=== PATIENT | male | born 1990 | race African-American/Black ===

== ENCOUNTER 2023-05-18 10:08 | Emergency (ER) | payer SELFPAY ==
[~2023-05-18] VITALS: Ht 185.4 cm; Wt 105.0 kg
[2023-05-18 10:13] VITALS: O2SAT 96
[2023-05-18 11:34] LABS: BASOPHILS % 0.1 % (0.0-2.0); HEMATOCRIT. 46.1 % (42.0-52.0); HEMOGLOBIN. 15.4 g/dL (14.0-18.0); LYMPHOCYTES % 11.3 % (20.0-50.0); MEAN CORPUSCULAR HEMOGLOBIN 28.8 pg (28.0-32.0); MEAN CORPUSCULAR HGB CONC 33.4 g/dL (31.0-37.0); MEAN CORPUSCULAR VOLUME 86.3 fL (80.0-94.0); MEAN PLATELET VOLUME 9.6 fl (7.4-10.4); NEUTROPHILS % 79.6 % (40.0-76.0); PLATELET 289 x1000/uL (130-400); RED BLOOD CELL COUNT 5.35 mill/uL (4.7-6.1); RED CELL DISTRIBUTION WIDTH 13.4 % (11.6-14.6); WHITE BLOOD COUNT 9.3 x1000/uL (4.5-11.0)
[2023-05-18 11:42] LABS: INR 1.1
[2023-05-18] MEDS: MORPHINE SULFATE 2 MG/ML CPJ (NOT FOR IM USE) IV NR (11:45)
[2023-05-18] MEDS: ONDANSETRON HCL 4MG/2ML INJ IV PRN (11:45)
[2023-05-18 11:48] LABS: ALANINE AMINOTRANSFERASE 17 IU/L (10-49); ALBUMIN 5.7 g/dL (3.2-4.8); ASPARTATE AMINOTRANSFERASE 19 IU/L (<34); BILIRUBIN TOTAL 0.5 mg/dL (0.1-1.0); CALCIUM 10.6 mg/dL (8.7-10.4); CARBON DIOXIDE 24 mEq/L (21-32); CHLORIDE 104 mEq/L (98-107); CREATININE 1.2 mg/dL (0.6-1.3); GLUCOSE 141 mg/dL (70-105); POTASSIUM 3.4 mEq/L (3.5-5.1); PROTEIN TOTAL 9.5 g/dL (6.0-8.3); SODIUM 142 mEq/L (136-145); UREA NITROGEN BLOOD 17 mg/dL (9-23)
[2023-05-18 11:50] LABS: ETHANOL BLOOD < 10 mg/dL (<10)
[2023-05-18] MEDS: LORAZEPAM 2MG/ML INJ IV SCH (13:11)
[2023-05-18] MEDS ORDERED: BUPR1FIL3 SL (14:27)
[2023-05-18] MEDS ORDERED: ONDA4TAB50 MT (14:29)
[2023-05-18] MEDS ORDERED: FAMO20TA8 MT (14:45)
[2023-05-18 17:22] VITALS: BP 135/80; PULSE 87; RESP 18; TEMP 98.2
== END 2023-05-18 17:24 | disposition home or self-care (01) ==
LOC: ER 10:08
DX: R11.2 Nausea with vomiting, unspecified (principal); K92.2 Gastrointestinal hemorrhage, unspecified; F11.20 Opioid dependence, uncomplicated
CPT/HCPCS: 80053; 80320; 85025; 85610; 86850; 86900; 86901; 36415; 96374; 96375; 99284; J2060; J2405; J2270; Z7610 ×5; G0480